=== PATIENT | male | born 1990 | race Caucasian/White ===

== ENCOUNTER 2019-02-13 08:53 | Inpatient (IN) | payer OTHER ==
[2019-02-13 09:21] VITALS: BMI 22.9
--- NOTE | 2019-02-13 11:01 | HP ---
CIWA Score Nausea/Vomitin Muscle Tremors: 2 Anxiety: 3 Agitation: 3 Paroxysmal Sweats: 1-Minimal Palms Moist Orientation: 0-Oriented Tacttile Disturbances: 1-Very Mild Itch/Numbness Auditory Disturbances: 0-None Visual Disturbances: 0-None Headache: 2-Mild CIWA-Ar Total Score: 14 - Admission Criteria OASAS Guidelines: Admission for Medically Managed Detox: Requires at least one of the followin. CIWA greater than 12 2. Seizures within the past 24 hours 3. Delirium tremens within the past 24 hours 4. Hallucinations within the past 24 hours 5. Acute intervention needed for co occurring medical disorder 6. Acute intervention needed for co occurring psychiatric disorder 7. Severe withdrawal that cannot be handled at a lower level of care (continued vomiting, continued diarrhea, abnormal vital signs) requiring intravenous medication and/or fluids 8. Admission ROS S - HPI Chief Complaint: I need help to stop drinking alcohol,heroin abused,mmtp 60 mgs/day Allergies/Adverse Reactions: Allergies Allergy/AdvReac Type Severity Reaction Status Date / Time Penicillins Allergy Severe Swelling Verified 02/13/19 09:12 shellfish derived Allergy Severe Hives Verified 02/13/19 09:12 History of Present Illness: this 29 years old male with alcohol dependence,heroin abused,mmtp 60 mgs/day, never been in detox before, denied seizure,denied syncope nicotine dependence 1/2 pack/da,would like nicotine gum asthma longest period of sobriety 2 years plan for rehab after detox hepatitis c Exam Limitations: No Limitations - Ebola screening Have you traveled outside of the country in the last 21 days: No (N) Have you had contact with anyone from an Ebola affected area: No Do you have a fever: No - Review of Systems Constitutional: Malaise, Night Sweats, Changes in sleep EENT: reports: Nose Congestion Respiratory: reports: No Symptoms reported, Other (asthma) Cardiac: reports: No Symptoms Reported GI: reports: Nausea, Poor Appetite, Vomiting, Abdominal cramping : reports: No Symptoms Reported Musculoskeletal: reports: Back Pain, Muscle Pain Integumentary: reports: Dryness Neuro: reports: Headache, Tremors Endocrine: reports: No Symptoms Reported Hematology: reports: No Symptoms Reported Psychiatric: reports: No Sypmtoms Reported, Judgement Intact, Mood/Affect Appropiate, Orientated x3, other Other Systems: Reviewed and Negative Patient History - Patient Medical History Hx Anemia: No Hx Asthma: Yes (albuterol) Hx Chronic Obstructive Pulmonary Disease (COPD): No Hx Cancer: No Hx Cardiac Disorders: No Hx Congestive Heart Failure: No Hx Hypertension: No Hx Hypercholesterolemia: No Hx Pacemaker: No HX Cerebrovascular Accident: No Hx Seizures: No Hx Dementia: No Hx Diabetes: No Hx Gastrointestinal Disorders: No Hx Liver Disease: No Hx Genitourinary Disorders: No Hx Sexually Transmitted Disorders: No Hx Renal Disease (ESRD): No Hx Thyroid Disease: No Hx Human Immunodeficiency Virus (HIV): No (last 06/25 negative) Hx Hepatitis C: No Hx Depression: Yes (no med) Hx Suicide Attempt: No (denies) Hx Bipolar Disorder: No Hx Schizophrenia: No Other Medical History: no suicidal,no homicidal - Patient Surgical History Past Surgical History: Yes Hx Neurologic Surgery: No Hx Cataract Extraction: No Hx Cardiac Surgery: No Hx Lung Surgery: No Hx Breast Surgery: No Hx Breast Biopsy: No Hx Abdominal Surgery: No Hx Appendectomy: No Hx Cholecystectomy: No Hx Genitourinary Surgery: No Hx Section: No Hx Orthopedic Surgery: No Other Surgical History: repair of flexor tendon left middle finger 2015 in [place] Anesthesia Reaction: No - PPD History Previous Implant?: Yes Documented Results: Negative w/proof Implanted On Prior [facility] Admission?: Yes Date: 02/10/19 Results: 0 mm PPD to be Administered?: No - Smoking Cessation Smoking history: Current every day smoker Have you smoked in the past 12 months: No Aproximately how many cigarettes per day: 10 Cigars Per Day: 0 Hx Chewing Tobacco Use: No Initiated information on smoking cessation: Yes 'Breaking Loose' booklet given: 02/13/19 - Substance & Tx. History Hx Alcohol Use: Yes Hx Substance Use: Yes Substance Use Type: Alcohol, Heroin Hx Substance Use Treatment: No - Substances abused Other Substance route: Inhalation Frequency: Daily Amount used: 2 bags Age of first use: 22 Date of last use: 02/12/19 Heroin Substance route: Inhalation Frequency: Daily Amount used: 2 bags Age of first use: 22 Date of last use: 02/12/19 Alcohol Substance route: Oral Frequency: Daily Amount used: 1pint of vodka/4 of 40 ozs of beer Age of first use: 17 Date of last use: 02/13/19 Family Disease History - Family Disease History Family Disease History: Other: Father (dsa,) Admission Physical Exam [facility] - Vital Signs Vital Signs: Vital Signs - 24 hr 02/13/19 02/13/19 09:12 09:39 Temperature 97.8 F 97.8 F Pulse Rate 78 78 Respiratory 18 18 Rate Blood Pressure 120/66 120/66 - Physical General Appearance: Yes: Moderate Distress, Tremorous, Irritable, Sweating, Anxious HEENTM: Yes: Normal ENT Inspection, MARIANA, Pharynx Normal Respiratory: Yes: Lungs Clear, Normal Breath Sounds, No Respiratory Distress Neck: Yes: Within Normal Limits, Supple, Trachea in good position Breast: Yes: Within Normal Limits Cardiology: Yes: Within Normal Limits, Regular Rhythm, Regular Rate, S1, S2 Abdominal: Yes: Within Normal Limits, Normal Bowel Sounds, Non Tender, Flat, Soft Genitourinary: Yes: Within Normal Limits Back: Yes: Muscle Spasm Musculoskeletal: Yes: Back pain, Muscle Pain Extremities: Yes: Within Normal Limits, Normal Range of Motion, Tremors Neurological: Yes: casting technician II-XII NML intact, Fully Oriented, Alert, Motor Strength 5/5 Integumentary: Yes: Dry Lymphatic: Yes: Within Normal Limits - Diagnostic (1) Alcohol dependence with uncomplicated withdrawal Current Visit: Yes Status: Acute (2) Asthma Current Visit: No Status: Chronic (3) Nicotine dependence Current Visit: No Status: Chronic (4) Opioid dependence Current Visit: No Status: Chronic (5) Methadone maintenance therapy patient Current Visit: Yes Status: Acute (6) Hepatitis C Current Visit: Yes Status: Acute Cleared for Admission [facility] - Detox or Rehab [facility] Level of Care: Medically Managed (ativan regimen) Breathalyzer - Breathalyzer Breathalyzer: 0 Urine Drug Screen - Test Device Lot number: [id number] Expiration date: 11/04/20 - Control Is test valid?: Yes - Results Drug screen NEGATIVE: No Urine drug screen results: FEN-Fentanyl, MTD-Methadone Inpatient Rehab Admission - Rehab Decision to Admit Inpatient rehab admission?: No
[2019-02-13] MEDS ORDERED: MAGNESIUM CITRATE 300 ML BOTTLE PO PRN (11:20)
[2019-02-13] MEDS ORDERED: ACETAMINOPHEN 325 MG TABLET (FP) PO PRN ×2 (11:20)
[2019-02-13] MEDS ORDERED: hydrOXYzine PAMOATE 25 MG CAPSULE (FP) PO PRN (11:20)
[2019-02-13] MEDS ORDERED: MAGNESIUM HYDROX 2400MG/30ML ORAL SUSPENSION 30 ML CUP PO PRN (11:20)
[2019-02-13] MEDS ORDERED: MAG HYDROX/AL HYDROX/SIMETH 30 ML UNIT-DOSE CUP PO PRN (11:20)
[2019-02-13] MEDS ORDERED: MENTHOL/PHENOL 1 EACH UD MM PRN (11:20)
[2019-02-13] MEDS ORDERED: IBUPROFEN 400 MG TABLET (FP) PO PRN (11:20)
[2019-02-13] MEDS ORDERED: METHOCARBAMOL 500 MG TABLET PO PRN (11:20)
[2019-02-13] MEDS ORDERED: LORazepam 1 MG TABLET PO PRN (11:20)
[2019-02-13] MEDS ORDERED: BISMUTH SUBSALICYLATE 262 MG/15 ML BTL PO PRN (11:20)
[2019-02-13] MEDS ORDERED: ALBUTEROL SO4 8 GM HFA INHALER IH PRN (11:24)
[2019-02-13] MEDS: NICOTINE POLACRILEX 2 MG GUM BUC PRN ×2 (15:23→22:19)
[2019-02-13] MEDS ORDERED: LORazepam 0.5 MG TABLET ONE (15:24)
[2019-02-13] MEDS: LORazepam 2 MG TABLET PO SCH ×2 (17:36→22:18)
[2019-02-13] MEDS: THIAMINE HCL 100 MG TABLET (FP) PO SCH (22:18)
[2019-02-13] MEDS: MELATONIN 5 MG TABLETS PO PRN (22:18)
[2019-02-14] MEDS ORDERED: METHADONE HCL 10 MG TABLET ONE (04:03)
[2019-02-14] MEDS ORDERED: METHADONE HCL 40 MG DISPERSABLE TABLET ONE (04:04)
[2019-02-14] MEDS: LORazepam 2 MG TABLET PO SCH ×4 (05:49→22:19)
[2019-02-14] MEDS: METHADONE 40 MG, METHADONE 20 MG PO SCH (05:49)
[2019-02-14] MEDS ORDERED: METHADONE HCL 10 MG TABLET PO SCH (06:00)
[2019-02-14] MEDS: PRENATAL VITAMINS W/ FOLIC ACID TABLET (FP) PO SCH (10:08)
[2019-02-14] MEDS: NICOTINE POLACRILEX 2 MG GUM BUC PRN ×3 (10:09→20:39)
--- NOTE | 2019-02-14 12:11 | PN ---
S CIWA - CIWA Score Nausea/Vomitin-Mild Nausea/No Vomiting Muscle Tremors: 2 Anxiety: 2 Agitation: 2 Paroxysmal Sweats: 1-Minimal Palms Moist Orientation: 0-Oriented Tacttile Disturbances: 1-Very Mild Itch/Numbness Auditory Disturbances: 0-None Visual Disturbances: 0-None Headache: 1-Very Mild CIWA-Ar Total Score: 10 [facility] Progress Note (SOAP) Subjective: alert,irritable,anxious,interrupted sleep,tremor Objective: 02/14/19 12:09 Vital Signs Temperature 97.9 F 02/14/19 09:04 Pulse Rate 92 H 02/14/19 09:04 Respiratory Rate 17 02/14/19 09:04 Blood Pressure 104/68 02/14/19 09:04 O2 Sat by Pulse Oximetry (%) Assessment: 02/14/19 12:10 withdrawal symptom Plan: continue detox,ativan regimen
[2019-02-14] MEDS: THIAMINE HCL 100 MG TABLET (FP) PO SCH (22:19)
[2019-02-14] MEDS: MELATONIN 5 MG TABLETS PO PRN (22:19)
[2019-02-15] MEDS ORDERED: METHADONE HCL 40 MG DISPERSABLE TABLET ONE (04:47)
[2019-02-15] MEDS ORDERED: METHADONE HCL 10 MG TABLET ONE (04:47)
[2019-02-15] MEDS: METHADONE 40 MG, METHADONE 20 MG PO SCH (05:21)
[2019-02-15] MEDS: LORazepam 1 MG TABLET PO SCH ×3 (05:21→17:07)
[2019-02-15] MEDS: NICOTINE POLACRILEX 2 MG GUM BUC PRN ×3 (09:01→17:09)
[2019-02-15] MEDS: PRENATAL VITAMINS W/ FOLIC ACID TABLET (FP) PO SCH (10:07)
--- NOTE | 2019-02-15 11:33 | EKG ---
Test Reason : Blood Pressure : / mmHG Vent. Rate : 057 BPM Atrial Rate : 057 BPM P-R Int : 116 ms QRS Dur : 094 ms QT Int : 446 ms P-R-T Axes : 065 080 065 degrees QTc Int : 434 ms SINUS BRADYCARDIA INCOMPLETE RIGHT BUNDLE BRANCH BLOCK BORDERLINE ECG NO PREVIOUS ECGS AVAILABLE Confirmed by STEPHANIE WADE MD ([id number]) on 02/15/2019 11:33:28 AM Referred By: Confirmed By:STEPHANIE WADE MD
--- NOTE | 2019-02-15 14:07 | PN ---
[facility] CIWA - CIWA Score Nausea/Vomitin-Mild Nausea/No Vomiting Muscle Tremors: 2 Anxiety: 3 Agitation: 1-Slight > Activity Paroxysmal Sweats: 1-Minimal Palms Moist Orientation: 0-Oriented Tacttile Disturbances: 0-None Auditory Disturbances: 0-None Visual Disturbances: 0-None Headache: 0-None Present CIWA-Ar Total Score: 8 [facility] Progress Note (SOAP) Subjective: doing well wtih ativan detox regimen social with peers in day room sleep better at night less tremor Objective: 02/15/19 14:07 Vital Signs Temperature 96.1 F L 02/15/19 13:41 Pulse Rate 82 02/15/19 13:41 Respiratory Rate 18 02/15/19 13:41 Blood Pressure 128/71 02/15/19 13:41 O2 Sat by Pulse Oximetry (%) 02/15/19 14:08 lab see 02/08/19 02/15/19 14:09 Assessment: 02/15/19 14:09 alcohol withdrawal sx Plan: continue ativan detox regimen
--- NOTE | 2019-02-15 15:36 | DS ---
[facility] Detox Discharge Summary Admission Date: 02/13/19 Discharge Date: 02/15/19 - History Present History: Alcohol Dependence Additional Comments: did well with ativan detox regimen no complication through out the detox stay alert oriented x 3 cardiac S2S3 regular rate rhythm respiratory clear lung bilaterally on auscultation extremities full range of motion - Physical Exam Results Vital Signs: Vital Signs Temperature 96.1 F L 02/15/19 13:41 Pulse Rate 82 02/15/19 13:41 Respiratory Rate 18 02/15/19 13:41 Blood Pressure 128/71 02/15/19 13:41 O2 Sat by Pulse Oximetry (%) Pertinent Admission Physical Exam Findings: alcohol withdrawal sx lab see 02/18/19 - Treatment Hospital Course: Detox Protocol Followed, Detoxed Safely, Responded well, Discharged Condition Good, Rehab Referral Accepted Patient has Accepted a Rehab Referral to: [facility] - Medication Discharge Medications: Ambulatory Orders Albuterol Sulfate Inhaler - [Ventolin HFA Inhaler -] 2 inh PO Q4H PRN 06/15/14 - Diagnosis (1) Alcohol dependence with uncomplicated withdrawal Current Visit: Yes Status: Acute (2) Hepatitis C Current Visit: Yes Status: Chronic Qualifiers: Viral hepatitis chronicity: carrier Qualified Code(s): B18.2 - Chronic viral hepatitis C (3) Methadone maintenance therapy patient Current Visit: Yes Status: Chronic (4) Asthma Current Visit: Yes Status: Chronic Qualifiers: Asthma severity: mild Asthma persistence: intermittent Asthma complication type: with status asthmaticus Qualified Code(s): J45.22 - Mild intermittent asthma with status asthmaticus (5) Nicotine dependence Current Visit: Yes Status: Acute Qualifiers: Nicotine product type: cigarettes Substance use status: in withdrawal Qualified Code(s): F17.213 - Nicotine dependence, cigarettes, with withdrawal - AMA Did Patient Leave Against Medical Advice: No CIWA Score - CIWA Score Nausea/Vomitin-No Nausea/No Vomiting Muscle Tremors: 1-None Visible, but [place] Anxiety: 2 Agitation: 1-Slight > Activity Paroxysmal Sweats: No Perspiration Orientation: 0-Oriented Tacttile Disturbances: 0-None Auditory Disturbances: 0-None Visual Disturbances: 0-None Headache: 0-None Present CIWA-Ar Total Score: 4
[2019-02-15 17:49] VITALS: BP 117/75; PULSE 99; TEMP 97.1
[2019-02-16] MEDS ORDERED: LORazepam 0.5 MG TABLET PO PRN
[2019-02-16] MEDS ORDERED: LORazepam 0.5 MG TABLET PO SCH (05:00)
[2019-02-17] MEDS ORDERED: LORazepam 0.5 MG TABLET PO ONE (05:00)
== END 2019-02-15 20:11 | disposition other institution (70) | DRG 773 ==
LOC: YASAS 08:53 → Y3N 11:17
PROVIDERS: ADMIT Surgery; ATTEND Surgery
PROC: HZ2ZZZZ Detoxification Services for Substance Abuse Treatment (ICD-10-PCS; principal; 2019-02-13)
DX: F11.23 Opioid dependence with withdrawal (principal); F10.230 Alcohol dependence with withdrawal, uncomplicated; F17.213 Nicotine dependence, cigarettes, with withdrawal; J45.22 Mild intermittent asthma with status asthmaticus; B18.2 Chronic viral hepatitis C; Z88.0 Allergy status to penicillin; Z91.013 Allergy to seafood
CPT/HCPCS: 93005; 93010

== ENCOUNTER 2019-02-15 20:06 | Inpatient (IN) | payer OTHER ==
--- NOTE | 2019-02-15 16:17 | HP ---
[facility] Rehab Assess/Revision - Admission History Admitted to Rehab from: [facility] Date of Admission to Rehab: 02/15/19 - Findings Detox History & Physical reviewed: Yes Concur with findings: Yes Comments/Additional Findings: transferred from detox to rehab admission as per protocol Inpatient Rehab Admission - Rehab Decision to Admit Inpatient rehab admission?: Yes - Initial Determination Are CD services needed?: Yes Free of communicable disease: Yes Not in need of hospitalization: Yes - Rehab Admission Criteria Previous failed treatment: Yes Poor recovery environment: Yes Comorbidities: Yes Lacks judgement: Yes Patient is meeting Inpatient Rehab admission criteria:: Yes
[~2019-02-15 20:06] MED LIST: ACETAMINOPHEN 325 MG TABLET (FP) PO PRN; ALBUTEROL SO4 8 GM HFA INHALER IH PRN; IBUPROFEN 400 MG TABLET (FP) PO PRN; LOPERAMIDE HCL 2 MG CAPSULE PO PRN; MAG HYDROX/AL HYDROX/SIMETH 30 ML UNIT-DOSE CUP PO PRN; MAGNESIUM CITRATE 300 ML BOTTLE PO PRN; MAGNESIUM HYDROX 2400MG/30ML ORAL SUSPENSION 30 ML CUP PO PRN; MENTHOL/PHENOL 1 EACH UD MM PRN; P-EPHED 60MG/TRIPROLIDI 2.5MG TABLET PO PRN; guaiFENesin 200 MG/10 ML 10 ML UNIT-DOSE CUPS PO PRN
[2019-02-15] MEDS: NICOTINE POLACRILEX 2 MG GUM BC PRN (21:50)
[2019-02-15] MEDS: MELATONIN 5 MG TABLETS PO PRN (21:50)
[2019-02-15] MEDS: THIAMINE HCL 100 MG TABLET (FP) PO SCH (21:50)
[2019-02-16] MEDS ORDERED: METHADONE HCL 10 MG TABLET PO SCH ×2 (06:00→07:30)
[2019-02-16] MEDS ORDERED: METHADONE 40 MG, METHADONE 20 MG PO SCH (07:45)
[2019-02-16] MEDS ORDERED: METHADONE HCL 40 MG DISPERSABLE TABLET ONE ×2 (07:47→09:23)
[2019-02-16] MEDS ORDERED: METHADONE HCL 10 MG TABLET ONE ×2 (07:47→09:23)
[2019-02-16] MEDS ORDERED: METHADONE 40 MG, METHADONE 20 MG PO ONE (08:45)
[2019-02-16] MEDS: NICOTINE 7 MG/24 HOURS TOPICAL PATCH TD SCH (09:27)
[2019-02-16] MEDS: NICOTINE POLACRILEX 2 MG GUM BC PRN ×3 (09:28→21:26)
[2019-02-16] MEDS: PRENATAL VITAMINS W/ FOLIC ACID TABLET (FP) PO SCH (11:00)
[2019-02-16] MEDS: THIAMINE HCL 100 MG TABLET (FP) PO SCH (21:26)
[2019-02-16] MEDS: MELATONIN 5 MG TABLETS PO PRN (21:26)
[2019-02-17] MEDS ORDERED: METHADONE HCL 10 MG TABLET ONE (05:57)
[2019-02-17] MEDS ORDERED: METHADONE HCL 40 MG DISPERSABLE TABLET ONE (05:58)
[2019-02-17] MEDS ORDERED: METHADONE HCL 10 MG TABLET PO SCH (06:00)
[2019-02-17] MEDS: METHADONE 40 MG, METHADONE 20 MG PO SCH (06:22)
--- NOTE | 2019-02-17 09:04 | CONSULT ---
[facility] Psychiatric Consult - Data Date of interview: 02/17/19 Admission source: [facility] Identifying data: Patient is a 29 year old single male, without children, unemployed, homeless, and is not currently receiving any financial assistance. This is one of multiple admissions for patient. Patient admitted to for alcohol dependence. Substance Abuse History: Smoking Cessation. Smoking history: Current every day smoker. Have you smoked in the past 12 months: No. Aproximately how many cigarettes per day: 10. Cigars Per Day: 0. Hx Chewing Tobacco Use: No. Initiated information on smoking cessation: Yes. 'Breaking Loose' booklet given : 02/13/19. - Substance & Tx. History. Hx Alcohol Use: Yes. Hx Substance Use : Yes. Substance Use Type: Alcohol, Heroin. Hx Substance Use Treatment: No. - Substances abused. Other. Substance route: Inhalation. Frequency: Daily. Amount used: 2 bags. Age of first use: 22. Date of last use: . Heroin. Substance route: Inhalation. Frequency: Daily. Amount used: 2 bags. Age of first use: 22. Date of last use: 02/12/19. Alcohol. Substance route: Oral. Frequency: Daily. Amount used: 1pint of vodka/4 of 40 ozs of beer. Age of first use: 17. Date of last use: 02/13/19 Medical History: Asthma Psychiatric History: Patient's first psychiatric contact was as a child due to behavior problems while in school. He denies accepting psychotropic medications but was provided with psychotherapy. As an adult he reports only receiving psychiatric care while in skilled nursing. He reports accepting remeron 30mg and seroquel but reports disliking seroquel. Mr. Branham last accepted remeron two years ago. States he was diagnosed with schizophrenia while in skilled nursing although denies history of psychotic sympoms. No psychosis noted. At present, patient is lethargic and having difficulty staying awake throughout assessment. He denies feeling depressed. Patient requeting to restart remeron for insomnia.. Physical/Sexual Abuse/Trauma History: denies. Mental Status Exam - Mental Status Exam Alert and Oriented to: Time, Place, Person Cognitive Function: Good Patient Appearance: Well Groomed Mood: Withdrawn Affect: Mood Congruent Patient Behavior: Fatigued Speech Pattern: Appropriate Voice Loudness: Normal Thought Process: Goal Oriented Thought Disorder: Not Present Hallucinations: Denies Suicidal Ideation: Denies Homicidal Ideation: Denies Insight/Judgement: Poor Sleep: Poorly Appetite: Fair Muscle strength/Tone: Normal Gait/Station: Normal Psychiatric Findings - Problem List ([place] 1, 2,3) (1) Alcohol dependence Current Visit: Yes Status: Acute (2) Methadone maintenance therapy patient Current Visit: Yes Status: Chronic (3) Substance-induced sleep disorder Current Visit: Yes Status: Acute - Initial Treatment Plan Initial Treatment Plan: Psychoeducation provided. Rehab in progress. Will order Remeron 15mg. Benefits and side effects discussed. Verbal consent given.
[2019-02-17] MEDS: PRENATAL VITAMINS W/ FOLIC ACID TABLET (FP) PO SCH (10:12)
[2019-02-17] MEDS: NICOTINE 7 MG/24 HOURS TOPICAL PATCH TD SCH (10:13)
[2019-02-17] MEDS: NICOTINE POLACRILEX 2 MG GUM BC PRN ×2 (10:14→21:23)
[2019-02-17] MEDS: MELATONIN 5 MG TABLETS PO PRN (21:22)
[2019-02-17] MEDS: THIAMINE HCL 100 MG TABLET (FP) PO SCH (21:22)
[2019-02-17] MEDS: MIRTAZAPINE 15 MG TABLET (FP) PO SCH (21:22)
[2019-02-18] MEDS ORDERED: METHADONE HCL 10 MG TABLET ONE (04:28)
[2019-02-18] MEDS ORDERED: METHADONE HCL 40 MG DISPERSABLE TABLET ONE (04:29)
[2019-02-18] MEDS: METHADONE 40 MG, METHADONE 20 MG PO SCH (06:26)
[2019-02-18] MEDS: PRENATAL VITAMINS W/ FOLIC ACID TABLET (FP) PO SCH (09:57)
[2019-02-18] MEDS: NICOTINE POLACRILEX 2 MG GUM BC PRN (09:58)
[2019-02-18] MEDS: NICOTINE 7 MG/24 HOURS TOPICAL PATCH TD SCH (09:58)
[2019-02-18] MEDS: MIRTAZAPINE 15 MG TABLET (FP) PO SCH (21:44)
[2019-02-18] MEDS: MELATONIN 5 MG TABLETS PO PRN (21:44)
[2019-02-18] MEDS: THIAMINE HCL 100 MG TABLET (FP) PO SCH (21:44)
[2019-02-19] MEDS ORDERED: METHADONE HCL 10 MG TABLET ONE (04:27)
[2019-02-19] MEDS ORDERED: METHADONE HCL 40 MG DISPERSABLE TABLET ONE (04:27)
[2019-02-19] MEDS: METHADONE 40 MG, METHADONE 20 MG PO SCH (06:06)
[2019-02-19] MEDS: NICOTINE 7 MG/24 HOURS TOPICAL PATCH TD SCH (10:08)
[2019-02-19] MEDS: PRENATAL VITAMINS W/ FOLIC ACID TABLET (FP) PO SCH (10:08)
[2019-02-19] MEDS: NICOTINE POLACRILEX 2 MG GUM BC PRN ×2 (10:09→21:35)
[2019-02-19] MEDS: MIRTAZAPINE 15 MG TABLET (FP) PO SCH (21:34)
[2019-02-19] MEDS: MELATONIN 5 MG TABLETS PO PRN (21:34)
[2019-02-19] MEDS: THIAMINE HCL 100 MG TABLET (FP) PO SCH (21:34)
[2019-02-20] MEDS ORDERED: METHADONE HCL 10 MG TABLET ONE (05:57)
[2019-02-20] MEDS ORDERED: METHADONE HCL 40 MG DISPERSABLE TABLET ONE (05:57)
[2019-02-20] MEDS: METHADONE 40 MG, METHADONE 20 MG PO SCH (06:14)
[2019-02-20] MEDS: PRENATAL VITAMINS W/ FOLIC ACID TABLET (FP) PO SCH (10:24)
[2019-02-20] MEDS: NICOTINE 7 MG/24 HOURS TOPICAL PATCH TD SCH (10:24)
[2019-02-20] MEDS: NICOTINE POLACRILEX 2 MG GUM BC PRN ×2 (10:25→18:51)
[2019-02-20] MEDS: THIAMINE HCL 100 MG TABLET (FP) PO SCH (21:31)
[2019-02-20] MEDS: MIRTAZAPINE 15 MG TABLET (FP) PO SCH (21:31)
[2019-02-21] MEDS: METHADONE 40 MG, METHADONE 20 MG PO SCH (06:21)
[2019-02-21] MEDS ORDERED: METHADONE HCL 40 MG DISPERSABLE TABLET ONE (06:21)
[2019-02-21] MEDS ORDERED: METHADONE HCL 10 MG TABLET ONE (06:21)
[2019-02-21] MEDS: PRENATAL VITAMINS W/ FOLIC ACID TABLET (FP) PO SCH (10:25)
[2019-02-21] MEDS: NICOTINE 7 MG/24 HOURS TOPICAL PATCH TD SCH (10:25)
[2019-02-21] MEDS: NICOTINE POLACRILEX 2 MG GUM BC PRN (10:26)
--- NOTE | 2019-02-21 13:05 | PN ---
Psychiatric Progress Note Vital Signs: Vital Signs Period Temp Pulse Resp BP Sys/Estes Pulse Ox Last 24 Hr 95 18-18 114/75 Date of Session: 02/21/19 Chief Complaint:: " I can't sleep. I feel restless and anxious." HPI: Patient admitted to for alcohol dependence. ROS: Patient is coherent, alert + Oriented X3. Current Medications: Active Medications Generic Name Dose Route Start Last Admin Trade Name Freq PRN Reason Stop Dose Admin Acetaminophen 650 mg 02/15/19 16:17 Tylenol - PO Q4H PRN FEVER Al Hydroxide/Mg Hydroxide 30 ml 02/15/19 16:17 Mylanta Oral Suspension - PO Q6H PRN DYSPEPSIA Albuterol Sulfate 2 puff 02/15/19 16:18 Ventolin Hfa Inhaler - IH Q4H PRN ASTHMA Eucalyptus/Menthol/Phenol/Sorbitol 1 each 02/15/19 16:17 Cepastat Lozenge - MM Q4H PRN SORE THROAT Guaifenesin 10 ml 02/15/19 16:17 Robitussin - PO Q6H PRN COUGH Ibuprofen 400 mg 02/15/19 16:17 Motrin - PO Q6H PRN Pain level 4-6 Loperamide HCl 4 mg 02/15/19 16:17 Imodium - PO Q6H PRN DIARRHEA Magnesium Citrate 300 ml 02/15/19 16:17 Citroma - PO Q48H PRN CONSTIPATION Magnesium Hydroxide 30 ml 02/15/19 16:17 Milk Of Magnesia - PO DAILY PRN CONSTIPATION Melatonin 5 mg 02/15/19 22:00 02/19/19 21:34 Melatonin PO 5 mg HS PRN Administration INSOMNIA Methadone HCl 40 mg/ Methadone 60 mg 02/17/19 06:00 02/21/19 06:21 HCl 20 mg PO 02/23/19 05:59 60 mg DAILY@0600 ILANA Administration Mirtazapine 15 mg 02/17/19 22:00 02/20/19 21:31 Remeron - PO 15 mg HS ILANA Administration Nicotine 7 mg 02/16/19 10:00 02/21/19 10:25 Nicoderm Patch - TD Not Given DAILY ILANA Nicotine Polacrilex 2 mg 02/15/19 16:17 02/21/19 10:26 Nicorette Gum - BC 2 mg Q2H PRN Administration NICOTINE REPLACEMENT RX Multivit/Folic Acid/Iron 1 tab 02/16/19 10:00 02/21/19 10:25 Vitamins (Sjr) - PO 1 tab DAILY ILANA Administration Pseudoephedrine/Triprolidine 1 combo 02/15/19 16:17 Actifed - PO TID PRN NASAL CONGESTION Thiamine HCl 100 mg 02/15/19 22:00 02/20/19 21:31 Vitamin B1 - PO 100 mg HS ILANA Administration Medication(s) Change(s): Yes. Current Side Effect: No Lab tests ordered: No Lab tests reviewed: Yes Provider note:: Patient reports not being truthful with specifications writer upon his inital evaluation. He reports past history of auditory hallucinations and paranoid ideation (during inital consultation patient reported history of schizophrenia but denied experiencing psychotic symptoms). Reports last experiencing psychotic symtoms while in prision. Stated his father () had a history schizophrenia. He reports being prescribed seroquel 100mg + Mirtazapine 45mg HS while in custodial although has not taken seroquel since his release from custodial two years ago. At present, patient denies auditory/visual hallucinations but reports anxiety, restlessness, and difficulty sleeping. No psychosis noted. Total face to face time:: 25 Mental Status Exam - Mental Status Exam Alert and Oriented to: Time, Place, Person Cognitive Function: Good Patient Appearance: Well Groomed Mood: Euthymic Affect: Mood Congruent Patient Behavior: Cooperative Speech Pattern: Appropriate Voice Loudness: Normal Thought Process: Goal Oriented Thought Disorder: Not Present Hallucinations: Denies Suicidal Ideation: Denies Homicidal Ideation: Denies Insight/Judgement: Poor Sleep: Poorly Appetite: Fair Muscle strength/Tone: Normal Gait/Station: Normal Psychiatric Treatment Plan - Problem List (1) Alcohol dependence Current Visit: Yes (2) Methadone maintenance therapy patient Current Visit: Yes (3) Substance-induced sleep disorder Current Visit: Yes (4) Schizophrenia Current Visit: Yes Comment: Reports being diagnosed with schizophrenia while in custodial.
[2019-02-21] MEDS: QUEtiapine FUMARATE 100 MG TABLET (FP) PO SCH (21:43)
[2019-02-21] MEDS: THIAMINE HCL 100 MG TABLET (FP) PO SCH (21:43)
[2019-02-21] MEDS: MIRTAZAPINE 15 MG TABLET (FP) PO SCH (21:43)
[2019-02-21] MEDS: MELATONIN 5 MG TABLETS PO PRN (21:44)
[2019-02-22] MEDS ORDERED: METHADONE HCL 10 MG TABLET ONE (04:10)
[2019-02-22] MEDS ORDERED: METHADONE HCL 40 MG DISPERSABLE TABLET ONE (04:11)
[2019-02-22] MEDS: METHADONE 40 MG, METHADONE 20 MG PO SCH (06:11)
[2019-02-22] MEDS: NICOTINE 7 MG/24 HOURS TOPICAL PATCH TD SCH (10:46)
[2019-02-22] MEDS: NICOTINE POLACRILEX 2 MG GUM BC PRN (10:46)
[2019-02-22] MEDS: PRENATAL VITAMINS W/ FOLIC ACID TABLET (FP) PO SCH (10:46)
[2019-02-22] MEDS: QUEtiapine FUMARATE 100 MG TABLET (FP) PO SCH (21:45)
[2019-02-22] MEDS: MELATONIN 5 MG TABLETS PO PRN (21:45)
[2019-02-22] MEDS: MIRTAZAPINE 15 MG TABLET (FP) PO SCH (21:45)
[2019-02-22] MEDS: THIAMINE HCL 100 MG TABLET (FP) PO SCH (21:45)
[2019-02-23] MEDS ORDERED: METHADONE HCL 10 MG TABLET PO SCH (06:47)
[2019-02-23] MEDS ORDERED: METHADONE HCL 10 MG TABLET ONE (07:20)
[2019-02-23] MEDS ORDERED: METHADONE HCL 40 MG DISPERSABLE TABLET ONE (07:20)
[2019-02-23] MEDS: METHADONE 40 MG, METHADONE 20 MG PO SCH (07:22)
[2019-02-23] MEDS: PRENATAL VITAMINS W/ FOLIC ACID TABLET (FP) PO SCH (10:44)
[2019-02-23] MEDS: NICOTINE 7 MG/24 HOURS TOPICAL PATCH TD SCH (10:44)
[2019-02-23] MEDS: NICOTINE POLACRILEX 2 MG GUM BC PRN (10:45)
[2019-02-23] MEDS: THIAMINE HCL 100 MG TABLET (FP) PO SCH (21:40)
[2019-02-23] MEDS: QUEtiapine FUMARATE 100 MG TABLET (FP) PO SCH (21:40)
[2019-02-23] MEDS: MIRTAZAPINE 15 MG TABLET (FP) PO SCH (21:40)
[2019-02-23] MEDS: MELATONIN 5 MG TABLETS PO PRN (21:41)
[2019-02-24] MEDS ORDERED: METHADONE HCL 10 MG TABLET ONE (04:12)
[2019-02-24] MEDS ORDERED: METHADONE HCL 40 MG DISPERSABLE TABLET ONE (04:12)
[2019-02-24] MEDS: METHADONE 40 MG, METHADONE 20 MG PO SCH (06:07)
[2019-02-24] MEDS: PRENATAL VITAMINS W/ FOLIC ACID TABLET (FP) PO SCH (10:16)
[2019-02-24] MEDS: NICOTINE 7 MG/24 HOURS TOPICAL PATCH TD SCH (10:17)
[2019-02-24] MEDS: NICOTINE POLACRILEX 2 MG GUM BC PRN ×3 (10:17→21:06)
[2019-02-24] MEDS: MELATONIN 5 MG TABLETS PO PRN (21:06)
[2019-02-24] MEDS: THIAMINE HCL 100 MG TABLET (FP) PO SCH (21:06)
[2019-02-24] MEDS: QUEtiapine FUMARATE 100 MG TABLET (FP) PO SCH (21:06)
[2019-02-24] MEDS: MIRTAZAPINE 15 MG TABLET (FP) PO SCH (21:06)
[2019-02-25] MEDS ORDERED: METHADONE HCL 10 MG TABLET ONE (05:55)
[2019-02-25] MEDS ORDERED: METHADONE HCL 40 MG DISPERSABLE TABLET ONE (05:56)
[2019-02-25] MEDS: METHADONE 40 MG, METHADONE 20 MG PO SCH (06:08)
[2019-02-25] MEDS: NICOTINE 7 MG/24 HOURS TOPICAL PATCH TD SCH (09:59)
[2019-02-25] MEDS: PRENATAL VITAMINS W/ FOLIC ACID TABLET (FP) PO SCH (09:59)
[2019-02-25] MEDS: NICOTINE POLACRILEX 2 MG GUM BC PRN (09:59)
[2019-02-25] MEDS: QUEtiapine FUMARATE 100 MG TABLET (FP) PO SCH (21:34)
[2019-02-25] MEDS: MIRTAZAPINE 15 MG TABLET (FP) PO SCH (21:34)
[2019-02-25] MEDS: THIAMINE HCL 100 MG TABLET (FP) PO SCH (21:34)
[2019-02-25] MEDS: MELATONIN 5 MG TABLETS PO PRN (21:34)
[2019-02-26] MEDS ORDERED: METHADONE HCL 10 MG TABLET ONE (05:57)
[2019-02-26] MEDS ORDERED: METHADONE HCL 40 MG DISPERSABLE TABLET ONE (05:58)
[2019-02-26] MEDS: METHADONE 40 MG, METHADONE 20 MG PO SCH (06:13)
[2019-02-26] MEDS: PRENATAL VITAMINS W/ FOLIC ACID TABLET (FP) PO SCH (10:11)
[2019-02-26] MEDS: NICOTINE 7 MG/24 HOURS TOPICAL PATCH TD SCH (10:11)
[2019-02-26] MEDS: NICOTINE POLACRILEX 2 MG GUM BC PRN ×2 (10:12→21:32)
--- NOTE | 2019-02-26 14:39 | PN ---
[facility] Progress Note Note: Patient is scheduled for discharge tomorrow. Script for 30 days supply of Remeron 15 mg/hs will be electronically transmitted to [facility] at [address] [place], [place] [id number]
[2019-02-26] MEDS: QUEtiapine FUMARATE 100 MG TABLET (FP) PO SCH (21:31)
[2019-02-26] MEDS: MIRTAZAPINE 15 MG TABLET (FP) PO SCH (21:31)
[2019-02-26] MEDS: THIAMINE HCL 100 MG TABLET (FP) PO SCH (21:31)
[2019-02-26] MEDS: MELATONIN 5 MG TABLETS PO PRN (21:32)
[2019-02-27] MEDS ORDERED: METHADONE HCL 10 MG TABLET ONE (05:49)
[2019-02-27] MEDS ORDERED: METHADONE HCL 40 MG DISPERSABLE TABLET ONE (05:49)
[2019-02-27] MEDS: METHADONE 40 MG, METHADONE 20 MG PO SCH (06:04)
[2019-02-27 07:15] VITALS: BP 123/42; PULSE 69; TEMP 97.6
--- NOTE | 2019-02-27 09:40 | DS ---
[facility] Rehab Discharge Summary - [facility] Rehab Discharge Summary Admission Date: 02/15/19 Discharge Date: 02/27/19 - History Present History: Alcohol dependence, MMTP, Opioid dependence Additional Comments: Pt is a 29 y/o male with a hx of YAQUELIN admitted to rehab, completed treatment and discharged today. Pt was referred from the [facility] and will be going back there today. Pt met with his counselor and has been referred to [facility] for intermediate aftercare. Pt reports no primary care and was instructed to follow up with [facility] at [address] [place] [address] for medical management needs. Pertinent Past History: Asthma Hep C Low back pain Chronic Insomnia - Discharge Physical Exam Vital Signs: Vital Signs Temperature 97.6 F 02/27/19 07:14 Pulse Rate 69 02/27/19 07:14 Respiratory Rate 18 02/27/19 07:14 Blood Pressure 123/42 L 02/27/19 07:14 O2 Sat by Pulse Oximetry (%) Alert o x 3 nad oob ambulating with steady gait Cardiac:s1 s2, rrr Lungs:cta,nubia. Extremities/Skin:No edema, no cyanosis,Full ROM;Skin intact Pertinent Admission Physical Exam Findings: Unremarkable - Treatment Discharge Condition: Discharge condition good - Medication Discharge Medications: Ambulatory Orders Albuterol Sulfate Inhaler - [Ventolin HFA Inhaler -] 2 inh PO Q4H PRN 06/15/14 Mirtazapine [Remeron -] 15 mg PO HS #30 tablet 02/26/19 - Medication-Assisted Treatment (MAT) Medication-Assisted Treatment (MAT): No - Discharge Instructions Diet, activity, other medical instructions: Diet:Regular Activity: oob Ad melania Other medical instructions:Follow up with CD aftercare recommendations Follow up with primary care as above recommended - Diagnosis (1) Alcohol dependence Status: Chronic Qualifiers: Substance use status: uncomplicated Qualified Code(s): F10.20 - Alcohol dependence, uncomplicated (2) Low back pain Status: Chronic Qualifiers: Chronicity: unspecified (3) Nicotine dependence Status: Chronic Qualifiers: Nicotine product type: cigarettes Substance use status: uncomplicated Qualified Code(s): F17.210 - Nicotine dependence, cigarettes, uncomplicated (4) Asthma Status: Chronic Qualifiers: Asthma severity: mild Asthma persistence: unspecified Asthma complication type: unspecified Qualified Code(s): J45.909 - Unspecified asthma , uncomplicated (5) Hepatitis C Status: Chronic Qualifiers: Viral hepatitis chronicity: unspecified (6) Methadone maintenance therapy patient Status: Chronic (7) Opioid dependence Status: Chronic Qualifiers: Substance use status: uncomplicated Qualified Code(s): F11.20 - Opioid dependence, uncomplicated - Follow-up Referral Minutes to complete discharge: 20 - AMA Did Patient Leave Against Medical Advice: No
[2019-02-27] MEDS: PRENATAL VITAMINS W/ FOLIC ACID TABLET (FP) PO SCH (10:25)
[2019-02-27] MEDS: NICOTINE 7 MG/24 HOURS TOPICAL PATCH TD SCH (10:25)
== END 2019-02-27 11:05 | disposition other institution (70) | DRG 772 ==
LOC: YASAS 20:06 → Y5N 20:07
PROVIDERS: ADMIT Neuromusculoskeletal Medicine & OMM; ATTEND Neuromusculoskeletal Medicine & OMM
PROC: HZ42ZZZ Group Counseling for Substance Abuse Treatment, Cognitive-Behavioral (ICD-10-PCS; principal; 2019-02-27)
DX: F10.20 Alcohol dependence, uncomplicated (principal); F11.20 Opioid dependence, uncomplicated; F17.210 Nicotine dependence, cigarettes, uncomplicated; F19.282 Other psychoactive substance dependence with psychoactive substance-induced sleep disorder; F20.9 Schizophrenia, unspecified; J45.909 Unspecified asthma, uncomplicated; G47.00 Insomnia, unspecified; M54.5 Low back pain; B18.2 Chronic viral hepatitis C

== ENCOUNTER 2021-01-31 10:41 | Inpatient (IN) | payer OTHER ==
[2021-01-31] MEDS ORDERED: MAGNESIUM HYDROX 2400MG/30ML ORAL SUSPENSION 30 ML CUP PO PRN (11:50)
[2021-01-31] MEDS ORDERED: IBUPROFEN 400 MG TABLET (FP) PO PRN (11:50)
[2021-01-31] MEDS ORDERED: METHOCARBAMOL 500 MG TABLET PO PRN (11:50)
[2021-01-31] MEDS ORDERED: MAG HYDROX/AL HYDROX/SIMETH 30 ML UNIT-DOSE CUP PO PRN (11:50)
[2021-01-31] MEDS ORDERED: ONDANSETRON *ODT* 4 MG TABLET SL PRN (11:50)
[2021-01-31] MEDS ORDERED: BISMUTH SUBSALICYLATE 524 MG/30 ML PO PRN (11:50)
[2021-01-31] MEDS ORDERED: NICOTINE 10 MG CARTRIDGE (INHALER) IH PRN (11:50)
[2021-01-31] MEDS ORDERED: clonazePAM 0.5 MG ODT TABLETS SL PRN (11:50)
[2021-01-31] MEDS ORDERED: MAGNESIUM CITRATE 300 ML BOTTLE PO PRN (11:50)
[2021-01-31] MEDS ORDERED: NICOTINE POLACRILEX 2 MG GUM BUC PRN (11:50)
[2021-01-31] MEDS ORDERED: MENTHOL/PHENOL 1 EACH UD MM PRN (11:50)
[2021-01-31] MEDS ORDERED: ACETAMINOPHEN 325 MG TABLET (FP) PO PRN ×2 (11:50)
[2021-01-31] MEDS ORDERED: ALBUTEROL SO4 HFA INHALER IH PRN (11:56)
[2021-01-31] MEDS ORDERED: methaDONE HCL 10 MG TABLET (FOR DETOX USE ONLY) PO ONE (12:15)
[2021-01-31 13:32] VITALS: BMI 21.2
[2021-01-31] MEDS ORDERED: hydrOXYzine PAMOATE 25 MG CAPSULE (FP) PO PRN (13:42)
[2021-01-31 13:55] LABS: HEMOGLOBIN 12.9 GM/dL (11.7-16.9); MCH 29.3 pg (25.7-33.7); MCHC 33.9 g/dl (32.0-35.9); MEAN CELL VOLUME 86.6 fl (80-96); MEAN PLT VOLUME 8.6 fl (7.5-11.1); PLATELET COUNT 230 10^3/uL (134-434); RBC 4.38 M/mm3 (4.00-5.60); WHITE BLOOD COUNT 13.1 K/mm3 (4.0-10.0)
[2021-01-31] MEDS ORDERED: hydrOXYzine PAMOATE 25 MG CAPSULE (FP) PO SCH (14:00)
[2021-01-31 14:07] LABS: CALCIUM 8.4 mg/dL (8.5-10.1)
[2021-01-31 14:08] LABS: ALBUMIN 3.5 g/dl (3.4-5.0); BLOOD UREA NITROGEN 11.7 mg/dL (7-18)
[2021-01-31 14:12] LABS: BILIRUBIN,TOTAL 1.3 mg/dL (0.2-1); TOT PROT 7.2 g/dl (6.4-8.2)
[2021-01-31] MEDS: diazePAM 5 MG TABLET PO PRN ×2 (14:17→22:57)
[2021-01-31] MEDS: cloNIDine HCL 0.1 MG TABLET PO PRN ×2 (17:45→22:57)
[2021-01-31] MEDS ORDERED: THIAMINE HCL 100 MG TABLET (FP) PO SCH (22:00)
[2021-01-31] MEDS ORDERED: MELATONIN 5 MG TABLETS PO SCH (22:00)
[2021-01-31] MEDS ORDERED: QUEtiapine FUMARATE 50 MG TABLET PO SCH (22:00)
[2021-02-01] MEDS ORDERED: methaDONE HCL 10 MG TABLET (FOR DETOX USE ONLY) ONE (08:50)
[2021-02-01] MEDS ORDERED: NICOTINE 21 MG/24 HOURS TOPICAL PATCH TD SCH (10:00)
[2021-02-01] MEDS ORDERED: PRENATAL VITAMINS W/ FOLIC ACID TABLET (FP) PO SCH (10:00)
[2021-02-01 11:34] VITALS: BP 99/54; PULSE 58; TEMP 98.2
[2021-02-02] MEDS ORDERED: methaDONE HCL 10 MG TABLET (FOR DETOX USE ONLY) PO ONE (10:00)
[2021-02-04] MEDS ORDERED: methaDONE HCL 10 MG TABLET (FOR DETOX USE ONLY) PO ONE (10:00)
== END 2021-02-01 10:34 | disposition left against medical advice (07) | DRG 770 ==
LOC: YASAS 10:41 → Y3N 12:54
PROVIDERS: ADMIT Allergy & Immunology; ATTEND Allergy & Immunology
PROC: HZ2ZZZZ Detoxification Services for Substance Abuse Treatment (ICD-10-PCS; principal; 2021-01-31)
DX: F11.23 Opioid dependence with withdrawal (principal); F10.230 Alcohol dependence with withdrawal, uncomplicated; F14.20 Cocaine dependence, uncomplicated; F12.20 Cannabis dependence, uncomplicated; F17.210 Nicotine dependence, cigarettes, uncomplicated; F20.9 Schizophrenia, unspecified; F19.24 Other psychoactive substance dependence with psychoactive substance-induced mood disorder; R63.4 Abnormal weight loss; Z68.21 Body mass index [BMI] 21.0-21.9, adult; Z88.0 Allergy status to penicillin; Z91.013 Allergy to seafood
CPT/HCPCS: 36415; 80053; 85027; 86780; C9803; J0735; U0003; U0005

== ENCOUNTER 2022-03-18 16:42 | Inpatient (IN) | payer OTHER ==
[2022-03-18 17:58] VITALS: BMI 30.4
[2022-03-18] MEDS ORDERED: MAG HYDROX/AL HYDROX/SIMETH 30 ML UNIT-DOSE CUP PO PRN (21:35)
[2022-03-18] MEDS ORDERED: BENZOCAINE/MENTHOL (CHLORASEPTIC ) LOZENGE MM PRN (21:35)
[2022-03-18] MEDS ORDERED: P-EPHED 60MG/TRIPROLIDI 2.5MG TABLET PO PRN (21:35)
[2022-03-18] MEDS ORDERED: ONDANSETRON *ODT* 4 MG TABLET SL PRN (21:35)
[2022-03-18] MEDS ORDERED: LOPERAMIDE HCL 2 MG CAPSULE PO PRN (21:35)
[2022-03-18] MEDS ORDERED: BISMUTH SUBSALICYLATE 524 MG/30 ML PO PRN (21:35)
[2022-03-18] MEDS ORDERED: IBUPROFEN 600 MG TABLET (FP) PO PRN (21:35)
[2022-03-18] MEDS ORDERED: MELATONIN 5 MG TABLETS PO PRN (21:35)
[2022-03-18] MEDS ORDERED: ACETAMINOPHEN 325 MG TABLET (FP) PO PRN ×2 (21:35)
[2022-03-18] MEDS ORDERED: MAGNESIUM CITRATE 300 ML BOTTLE PO PRN (21:35)
[2022-03-18] MEDS ORDERED: NALOXONE HCL 0.4 MG/ML VIAL IM PRN (21:35)
[2022-03-18] MEDS ORDERED: MAGNESIUM HYDROX 2400MG/30ML ORAL SUSPENSION 30 ML CUP PO PRN (21:35)
[2022-03-18] MEDS ORDERED: NALOXONE HCL (KLOXXADO) 8 MG SPRAY NS PRN (21:35)
[2022-03-18] MEDS ORDERED: DICYCLOMINE HCL 10 MG CAPSULE PO PRN (21:35)
[2022-03-18] MEDS ORDERED: guaiFENesin 200 MG/10 ML 10 ML UNIT-DOSE CUPS PO PRN (21:35)
[2022-03-18] MEDS ORDERED: IBUPROFEN 400 MG TABLET (FP) PO PRN (21:35)
[2022-03-18] MEDS ORDERED: MIRTAZAPINE 15 MG TABLET (FP) PO ONE (23:00)
[2022-03-18] MEDS ORDERED: QUEtiapine FUMARATE 50 MG TABLET PO ONE (23:00)
[2022-03-18] MEDS: THIAMINE HCL 100 MG TABLET (FP) PO SCH (23:34)
[2022-03-18] MEDS: diazePAM 5 MG TABLET PO PRN (23:35)
[2022-03-19] MEDS ORDERED: ALBUTEROL SO4 HFA INHALER IH PRN (08:32)
[2022-03-19] MEDS ORDERED: methaDONE HCL 10 MG TABLET PO ONE (09:37)
[2022-03-19] MEDS ORDERED: methaDONE 80 MG, methaDONE 10 MG PO ONE (09:40)
[2022-03-19] MEDS: METHOCARBAMOL 500 MG TABLET PO PRN ×2 (10:05→17:26)
[2022-03-19] MEDS: PRENATAL VITAMINS W/ FOLIC ACID TABLET (FP) PO SCH (10:05)
[2022-03-19] MEDS: hydrOXYzine PAMOATE 25 MG CAPSULE (FP) PO PRN ×2 (10:05→17:22)
[2022-03-19 10:10] LABS: HEMATOCRIT 40.4 % (35.4-49); HEMOGLOBIN 13.3 GM/dL (11.7-16.9); MCH 30.4 pg (25.7-33.7); MCHC 32.9 g/dl (32.0-35.9); MEAN CELL VOLUME 92.2 fl (80-96); PLATELET COUNT 258 10^3/uL (134-434); RBC 4.38 M/mm3 (4.00-5.60); RDW 13.3 % (11.9-15.9); WHITE BLOOD COUNT 6.9 K/mm3 (4.0-10.0)
[2022-03-19 11:04] LABS: CALCIUM 8.7 mg/dL (8.5-10.1)
[2022-03-19 11:05] LABS: ALBUMIN 3.5 g/dl (3.4-5.0); BLOOD UREA NITROGEN 14.2 mg/dL (7-18); CREATININE 0.8 mg/dL (0.55-1.3)
[2022-03-19 11:08] LABS: BILIRUBIN,TOTAL 0.8 mg/dL (0.2-1); TOT PROT 6.3 g/dl (6.4-8.2)
[2022-03-19] MEDS: diazePAM 5 MG TABLET PO PRN ×3 (13:36→22:39)
[2022-03-19] MEDS: NICOTINE 10 MG CARTRIDGE (INHALER) IH PRN (17:24)
[2022-03-19] MEDS: MIRTAZAPINE 30 MG TABLET PO SCH (22:37)
[2022-03-19] MEDS: QUEtiapine FUMARATE 100 MG TABLET (FP) PO SCH (22:37)
[2022-03-19] MEDS: THIAMINE HCL 100 MG TABLET (FP) PO SCH (22:37)
[2022-03-20] MEDS: methaDONE 80 MG, methaDONE 10 MG PO SCH (05:39)
[2022-03-20] MEDS: diazePAM 5 MG TABLET PO PRN (05:41)
[2022-03-20] MEDS: hydrOXYzine PAMOATE 25 MG CAPSULE (FP) PO PRN ×3 (05:42→17:59)
[2022-03-20] MEDS ORDERED: methaDONE HCL 10 MG TABLET PO SCH (06:00)
[2022-03-20] MEDS ORDERED: diazePAM 5 MG TABLET PO PRN (09:04)
[2022-03-20] MEDS: PRENATAL VITAMINS W/ FOLIC ACID TABLET (FP) PO SCH (10:48)
[2022-03-20] MEDS: diazePAM 5 MG TABLET PO SCH ×3 (10:48→22:11)
[2022-03-20] MEDS: METHOCARBAMOL 500 MG TABLET PO PRN ×2 (10:48→17:59)
[2022-03-20] MEDS: NICOTINE 10 MG CARTRIDGE (INHALER) IH PRN ×2 (13:15→19:16)
[2022-03-20] MEDS: QUEtiapine FUMARATE 100 MG TABLET (FP) PO SCH (22:11)
[2022-03-20] MEDS: THIAMINE HCL 100 MG TABLET (FP) PO SCH (22:11)
[2022-03-20] MEDS: MIRTAZAPINE 30 MG TABLET PO SCH (22:11)
[2022-03-21] MEDS: diazePAM 5 MG TABLET PO SCH ×2 (05:28→10:13)
[2022-03-21] MEDS: methaDONE 80 MG, methaDONE 10 MG PO SCH (05:28)
[2022-03-21] MEDS: METHOCARBAMOL 500 MG TABLET PO PRN (05:31)
[2022-03-21 09:51] VITALS: BP 109/60; PULSE 54; RESP 19; TEMP 97.5
[2022-03-21] MEDS: PRENATAL VITAMINS W/ FOLIC ACID TABLET (FP) PO SCH (10:13)
[2022-03-21] MEDS: hydrOXYzine PAMOATE 25 MG CAPSULE (FP) PO PRN (10:14)
[2022-03-21] MEDS: NICOTINE 10 MG CARTRIDGE (INHALER) IH PRN (10:15)
[2022-03-21] MEDS ORDERED: NALOXONE (NARCAN) HCL 4 MG/0.1 ML SPRAY NS ONE (11:07)
[2022-03-22] MEDS ORDERED: diazePAM 5 MG TABLET PO SCH (06:00)
[2022-03-23] MEDS ORDERED: diazePAM 5 MG TABLET PO SCH (06:00)
[2022-03-24] MEDS ORDERED: diazePAM 5 MG TABLET PO ONE (06:00)
== END 2022-03-21 11:15 | disposition left against medical advice (07) | DRG 770 ==
LOC: YASAS 16:42 → Y6N 22:36 → UNDOADMIN 22:36
PROVIDERS: ADMIT Allergy & Immunology; ATTEND Surgery
PROC: HZ2ZZZZ Detoxification Services for Substance Abuse Treatment (ICD-10-PCS; principal; 2022-03-19)
DX: F10.230 Alcohol dependence with withdrawal, uncomplicated (principal); F13.230 Sedative, hypnotic or anxiolytic dependence with withdrawal, uncomplicated; F11.20 Opioid dependence, uncomplicated; F14.20 Cocaine dependence, uncomplicated; F12.20 Cannabis dependence, uncomplicated; F17.210 Nicotine dependence, cigarettes, uncomplicated; F19.280 Other psychoactive substance dependence with psychoactive substance-induced anxiety disorder; F19.24 Other psychoactive substance dependence with psychoactive substance-induced mood disorder; Z86.19 Personal history of other infectious and parasitic diseases; Z88.0 Allergy status to penicillin; Z91.013 Allergy to seafood; Z56.0 Unemployment, unspecified; Z59.00 Homelessness unspecified
CPT/HCPCS: 36415; 80053; 85027; 86780; C9803-CS; U0003; U0005